=== PATIENT | male | born 1950 | race Two or more races ===

== ENCOUNTER 2024-05-31 19:46 | Inpatient (IN) | payer OTHER ==
[~2024-05-31] VITALS: Ht 165.1 cm; Wt 63.0 kg
[2024-05-31] MEDS ORDERED: ACETAMINOPHEN 325 MG TABLET PO PRN (22:45)
[2024-05-31] MEDS ORDERED: ONDANSETRON HCL 4 MG/2 ML VIAL IVP PRN (22:45)
[2024-05-31 22:56] LABS: BASOPHILS % (AUTO) 2.1 % (0.0-2.0); EOSINOPHILS % (AUTO) 2.4 % (1.0-6.0); HEMATOCRIT 42.3 % (41-53); HEMOGLOBIN 13.7 g/dL (13.5-17.5); LYMPHOCYTES # (AUTO) 0.8 K/uL (1.0-4.8); LYMPHOCYTES % (AUTO) 18.3 % (22.0-44.0); MEAN CORPUSCULAR HEMOGLOBIN 31.7 pg (26.0-34.0); MEAN CORPUSCULAR HGB CONC 32.3 G/dL (31.0-37.0); MEAN CORPUSCULAR VOLUME 98 fL (80-100); MONOCYTES # (AUTO) 0.5 K/uL (0.1-1.0); MONOCYTES % (AUTO) 10.8 % (2.0-9.0); NEUTROPHILS # (AUTO) 2.9 K/uL (1.8-7.7); NEUTROPHILS % (AUTO) 66.4 % (40.0-70.0); PLATELET COUNT (AUTO) 160 K/uL (150-450); RED BLOOD CELL COUNT(AUTO) 4.31 MIL/uL (4.50-5.90); WHITE BLOOD COUNT (AUTO) 4.4 K/uL (4.5-11.0)
[2024-05-31 23:16] LABS: TROPONIN I-HIGH SENSITIVITY 20 ng/L (<76)
[2024-05-31 23:25] LABS: CREATININE 4.87 mg/dL (0.60-1.30); POTASSIUM 3.9 mmol/L (3.5-5.1)
[2024-05-31 23:39] LABS: ALBUMIN 3.4 g/dL (3.4-5.0); BILIRUBIN,DIRECT 0.2 mg/dL (0.00-0.20); BILIRUBIN,TOTAL 0.6 mg/dL (0.1-1.0); TOTAL PROTEIN, SERUM 7.5 g/dL (6.4-8.2)
[2024-06-01] VITALS (15 sets, daily range): BP systolic 142–185; BP diastolic 56–85; PULSE 56–70; RESP 16–20; TEMP 97.7–98.8; O2SAT 95–99
[2024-06-01] MEDS: HEPARIN SODIUM,PORCINE 5,000 UNITS/ML VIAL SQ SCH
[2024-06-01] MEDS: NITROGLYCERIN 2% (1 GM=INCH) OINTMENT PACKET TP SCH
[2024-06-01 00:32] LABS: TROPONIN I-HIGH SENSITIVITY 18 ng/L (<76)
[2024-06-01] MEDS: HydrALAZINE HCL 20 MG/ML VIAL IVP PRN (05:46)
[2024-06-01 06:22] LABS: BASOPHILS % (AUTO) 2.2 % (0.0-2.0); EOSINOPHILS % (AUTO) 2.7 % (1.0-6.0); HEMATOCRIT 40.1 % (41-53); HEMOGLOBIN 13.4 g/dL (13.5-17.5); LYMPHOCYTES # (AUTO) 0.8 K/uL (1.0-4.8); MEAN CORPUSCULAR HEMOGLOBIN 32.6 pg (26.0-34.0); MEAN CORPUSCULAR HGB CONC 33.3 G/dL (31.0-37.0); MEAN CORPUSCULAR VOLUME 98 fL (80-100); MONOCYTES # (AUTO) 0.4 K/uL (0.1-1.0); MONOCYTES % (AUTO) 10.7 % (2.0-9.0); NEUTROPHILS # (AUTO) 2.6 K/uL (1.8-7.7); NEUTROPHILS % (AUTO) 64.4 % (40.0-70.0); PLATELET COUNT (AUTO) 152 K/uL (150-450); RED BLOOD CELL COUNT(AUTO) 4.09 MIL/uL (4.50-5.90); RED CELL DISTRIBUTION WIDTH 16.4 % (11.5-14.5); WHITE BLOOD COUNT (AUTO) 4.1 K/uL (4.5-11.0)
[2024-06-01 06:30] LABS: CALCIUM, TOTAL 7.9 mg/dL (8.8-10.5); CREATININE 5.29 mg/dL (0.60-1.30); MAGNESIUM 2.1 mg/dL (1.80-2.40); POTASSIUM 3.7 mmol/L (3.5-5.1)
[2024-06-01] MEDS: DOCUSATE SODIUM 100 MG CAPSULE PO SCH (07:59)
[2024-06-01] MEDS: AmLODIPine BESYLATE 10 MG TABLET PO SCH (07:59)
[2024-06-01 08:37] LABS: TROPONIN I-HIGH SENSITIVITY 15 ng/L (<76)
[2024-06-01] MEDS ORDERED: AMLO-258 PO (09:18)
[2024-06-01] MEDS ORDERED: CHOL400T56 PO (09:18)
[2024-06-01] MEDS ORDERED: EPOE10006 SQ (09:18)
[2024-06-01] MEDS ORDERED: HYDR50TA36 PO (09:18)
[2024-06-01] MEDS ORDERED: NITR0.4T52 SL (09:18)
[2024-06-01] MEDS ORDERED: APIX5TAB PO (09:18)
[2024-06-01] MEDS ORDERED: KAYEX60 PO (09:18)
[2024-06-01] MEDS ORDERED: LABE200T56 PO (09:18)
[2024-06-01] MEDS ORDERED: PHOSLOC PO (09:18)
[2024-06-01] MEDS ORDERED: LOSA-382 PO (09:18)
[2024-06-01] MEDS ORDERED: DOXA2TAB86 PO (09:18)
[2024-06-01] MEDS: LOSARTAN POTASSIUM 50 MG TABLET PO SCH (13:11)
[2024-06-01] MEDS: FOLIC ACID/VIT B COMPLEX AND C TABLET PO SCH (14:24)
[2024-06-01] MEDS ORDERED: NITROGLYCERIN 0.4 MG SUBLINGUAL TABLET #25 SL PRN (15:30)
[2024-06-01] MEDS: LABETALOL HCL 100 MG TABLET PO SCH (23:57)
[2024-06-01] MEDS: APIXABAN 2.5 MG TABLET PO SCH (23:57)
[2024-06-02] VITALS (7 sets, daily range): BP systolic 142–189; BP diastolic 57–68; PULSE 55–61; RESP 18–20; TEMP 97.5–98.9; O2SAT 94–99
[2024-06-02] MEDS: HydrALAZINE HCL 20 MG/ML VIAL IVP PRN (00:35)
[2024-06-02 07:14] LABS: BASOPHILS % (AUTO) 1.4 % (0.0-2.0); EOSINOPHILS % (AUTO) 2.8 % (1.0-6.0); HEMATOCRIT 40.8 % (41-53); HEMOGLOBIN 13.5 g/dL (13.5-17.5); LYMPHOCYTES # (AUTO) 1.2 K/uL (1.0-4.8); LYMPHOCYTES % (AUTO) 21.2 % (22.0-44.0); MEAN CORPUSCULAR HEMOGLOBIN 32.6 pg (26.0-34.0); MEAN CORPUSCULAR HGB CONC 33.1 G/dL (31.0-37.0); MEAN CORPUSCULAR VOLUME 99 fL (80-100); MONOCYTES # (AUTO) 0.6 K/uL (0.1-1.0); MONOCYTES % (AUTO) 10.3 % (2.0-9.0); NEUTROPHILS # (AUTO) 3.5 K/uL (1.8-7.7); NEUTROPHILS % (AUTO) 64.3 % (40.0-70.0); PLATELET COUNT (AUTO) 161 K/uL (150-450); RED BLOOD CELL COUNT(AUTO) 4.14 MIL/uL (4.50-5.90); RED CELL DISTRIBUTION WIDTH 17.2 % (11.5-14.5); WHITE BLOOD COUNT (AUTO) 5.4 K/uL (4.5-11.0)
[2024-06-02 07:19] LABS: HEMOGLOBIN A1C 5.1 % (3.8-5.6)
[2024-06-02 07:38] LABS: CALCIUM, TOTAL 8.2 mg/dL (8.8-10.5); CHOL/HDL RATIO 2.3 (4.2-7.3); CREATININE 3.71 mg/dL (0.60-1.30); THYROID STIMULATING HORMONE 7.36 uIU/mL (0.36-3.74)
[2024-06-02] MEDS ORDERED: LABETALOL HCL 200 MG TABLET PO SCH (09:00)
[2024-06-02] MEDS ORDERED: LOSARTAN POTASSIUM 50 MG TABLET PO SCH (09:00)
[2024-06-02] MEDS ORDERED: HydrALAZINE HCL 50 MG TABLET PO SCH (09:00)
[2024-06-02] MEDS: HydrALAZINE HCL 50 MG TABLET PO SCH (09:30)
[2024-06-02] MEDS: DOXAZOSIN MESYLATE 2 MG TABLET PO SCH (09:30)
[2024-06-02] MEDS: CHOLECALCIFEROL (VIT D3) 400 UNITS [10 MCG] TABLET PO SCH (09:31)
[2024-06-02] MEDS: CALCIUM ACETATE 667 MG CAPSULE PO SCH (09:31)
[2024-06-02] MEDS: LOSARTAN POTASSIUM 50 MG TABLET PO SCH (09:31)
[2024-06-02] MEDS ORDERED: ISOS30TA92 PO (11:59)
[2024-06-02] MEDS ORDERED: HYDR50TA37 PO (11:59)
[2024-06-02] MEDS: ISOSORBIDE MONONITRATE 30 MG ER TABLET PO SCH (13:27)
== END 2024-06-02 20:30 | DRG 291 ==
LOC: EMS 19:46 → EDH 22:42 → 5S 06-01 10:10
PROVIDERS: ADMIT Internal Medicine; ATTEND Internal Medicine
PROC: 5A1D70Z Performance of Urinary Filtration, Intermittent, Less than 6 Hours Per Day (ICD-10-PCS; principal; 2024-06-01)
DX: I13.2 Hypertensive heart and chronic kidney disease with heart failure and with stage 5 chronic kidney disease, or end stage renal disease (principal); I50.43 Acute on chronic combined systolic (congestive) and diastolic (congestive) heart failure; N18.6 End stage renal disease; I16.1 Hypertensive emergency; I48.20 Chronic atrial fibrillation, unspecified; I48.91 Unspecified atrial fibrillation; I48.0 Paroxysmal atrial fibrillation; Z99.2 Dependence on renal dialysis; I27.20 Pulmonary hypertension, unspecified; K74.60 Unspecified cirrhosis of liver; Z79.01 Long term (current) use of anticoagulants; Z79.899 Other long term (current) drug therapy
CPT/HCPCS: 71045; 80048; 80061; 80076; 82550; 83036; 83735; 83880; 84443; 84484; 85025; 87340; 90935; 93005; 93306; G0378; J0360; J1644; 36415-L1; 36415-TC